=== PATIENT | female | born 1975 | race Caucasian/White ===

== ENCOUNTER 2023-01-05 06:24 | Day surgery (SDC) | payer OTHER ==
[2023-01-03 12:31] LABS: HCG,QUAL RESULT NEGATIVE (NEGATIVE)
[~2023-01-05] VITALS: Ht 162.6 cm; Wt 99.8 kg
[2023-01-05] MEDS ORDERED: CEFAZOLIN SOD 2 GM in D5W 50 ML IV ONE (07:00)
[2023-01-05] MEDS ORDERED: ACETAMINOPHEN I.V. 1000 MG 100 ML IV ONE (08:01)
[2023-01-05] MEDS ORDERED: fentaNYL CITRATE/PF 100 MCG/2 ML AMP ONE ×2 (08:01→08:41)
[2023-01-05] MEDS ORDERED: METOCLOPRAMIDE HCL 10 MG/2 ML VIAL ONE (08:41)
[2023-01-05] MEDS ORDERED: PROPOFOL 200MG/ 20ML VIAL (DIPRIVAN) IV ONE (08:41)
[2023-01-05] MEDS ORDERED: LR 1,000 ML IV.SOLN IV ONE (08:41)
[2023-01-05] MEDS ORDERED: ONDANSETRON HCL 4 MG/2 ML VIAL ONE (08:41)
[2023-01-05] MEDS ORDERED: DEXAMETHASONE SOD PHOSPHATE 4 MG/ML VIAL ONE (08:41)
[2023-01-05] MEDS ORDERED: NS IRRIG SOLN 5000 ML IR ONE (08:41)
[2023-01-05 09:02] VITALS: O2SAT 97
[2023-01-05] MEDS ORDERED: OXYCODONE/ACETAMINOPHEN 5-325 TABLET PO PRN ×2 (09:15)
[2023-01-05] MEDS ORDERED: ONDANSETRON HCL 4 MG/2 ML VIAL IVP PRN (09:15)
[2023-01-05] MEDS ORDERED: HYDROcodone/ACETAMIN 5-325 MG TAB (NORCO/ VICODIN) PO PRN (09:15)
[2023-01-05 13:16] VITALS: BP_SYST 118; PULSE 66; RESP 16
== END 2023-01-05 12:05 | disposition home or self-care (01) ==
LOC: SDS 06:24 → SMU 06:31 → SDS 12:05
PROVIDERS: ATTEND Specialist
DX: N92.1 Excessive and frequent menstruation with irregular cycle (principal); D25.9 Leiomyoma of uterus, unspecified; N84.0 Polyp of corpus uteri; D50.0 Iron deficiency anemia secondary to blood loss (chronic); Z79.899 Other long term (current) drug therapy
CPT/HCPCS: 84703; 87081; 58558; 88305; J0690; J1100; J2765; J2405; J2704; J3010; J7060; J7120; C1819; J0131